=== PATIENT | male | born 1940 | race Caucasian/White ===

== ENCOUNTER 2021-12-28 06:09 | Day surgery (SDC) | payer MEDICARE, OTHER ==
[2021-12-28] MEDS ORDERED: LACTATED RINGERS 1,000 ML IV SCH (06:20)
[2021-12-28 06:31] VITALS: RESP 16; TEMP 97.1
[2021-12-28 06:39] LABS: Glucose,Whole Blood 129 mg/dL (75-99)
[2021-12-28] MEDS ORDERED: PROPOFOL 10 MG/ML 20 ML VIAL IV ONE (06:51)
[2021-12-28] MEDS ORDERED: ONDANSETRON 4 MG/2 ML VIAL ONE (06:59)
--- NOTE | 2021-12-28 07:05 | P.PCN ---
Date of Procedure: 12/28/21 Procedure(s) Performed: BRIEF HISTORY: Patient is a 81-year-old pleasant male scheduled for an elective colonoscopy as a part of evaluation of abnormal CAT scan of the abdomen and pelvis that revealed rectosigmoid stricture. Patient has some change in bowel habits but no rectal bleeding. And scheduled for sigmoidoscopy to evaluate further PROCEDURE PERFORMED: Flexible sigmoid endoscopy with biopsy PREOPERATIVE DIAGNOSIS: Abnormal CAT scan showing rectosigmoid stricture and change in bowel habits. IV sedation per Anesthesia. PROCEDURE: After informed consent was obtained, the patient, was brought into the endoscopy unit. IV sedation was administered by Anesthesia under continuous monitoring. Digital rectal examination was normal. Initially the Olympus CF-160 flexible video colonoscope was then inserted in the rectum, gradually advanced into the splenic flexure without any difficulty. Careful examination was performed as the scope was gradually being withdrawn. In the descending colon there was a 3 mm polyp that was removed by cold biopsy. Rest of the, descending colon, sigmoid colon, and rectum appeared normal. Retroflexion was performed in the rectum and monitor hemorrhoids were seen. The patient tolerated the procedure well. IMPRESSION: 3 mm descending colon polyp status post cold biopsy Small internal hemorrhoids . RECOMMENDATIONS: Findings of this examination were discussed with the patient as well as his family. He was advised to follow with the biopsy results and have a repeat colonoscopy in 5 years..
[2021-12-28 07:20] VITALS: BP 128/74; PULSE 61
== END 2021-12-28 08:05 | disposition home or self-care (01) ==
LOC: ORWHC2ENDO 06:09
PROVIDERS: ATTEND Internal Medicine Gastroenterology
DX: D12.4 Benign neoplasm of descending colon (principal); K64.8 Other hemorrhoids; I10 Essential (primary) hypertension; E11.9 Type 2 diabetes mellitus without complications
CPT/HCPCS: 45331; 88305; J2704

== ENCOUNTER → 2023-03-19 | Outpatient (CLI) | payer MEDICARE, OTHER ==
[2023-03-19 15:22] LABS: Basophils # (A) 0.05 X 10*3/uL (0.00-0.10); Eosinophils # (A) 0.21 X 10*3/uL (0.04-0.35); Eosinophils % (A) 4.3 %; HCT 43.7 % (39.6-50.0); Immature Grans, Automated 0 %; Lymphocytes % (A) 35.1 %; MCH 30.7 pg (27.0-32.0); MCV 95.8 fL (80.0-97.0); Monocytes % (A) 8.2 %; NRBC Per 100 WBC 0 /100 WBCS (0.0-0.0); Neutrophils # (A) 2.49 X 10*3/uL (1.80-7.70); Neutrophils % (A) 51.4 %; Platelet Count 256 X 10*3/uL (140-440); RBC 4.56 X 10*6/uL (4.40-5.60); RDW 13.1 % (11.5-14.5); WBC 4.85 X 10*3/uL (4.50-10.00)
[2023-03-19 16:14] LABS: ALT 22 U/L (10-49); AST 22 U/L (14-35); African American GFR (CKD) 65.8 (60.0-200.0); Albumin 4.6 g/dL (3.8-4.9); Albumin/Globulin Ratio 1.92 (1.60-3.17); Alkaline Phosphatase 63 U/L (41-126); BUN/Creat Ratio 13.67 Ratio (12.00-20.00); Blood Urea Nitrogen 16.4 mg/dL (9.0-27.0); Calcium 9.5 mg/dL (8.7-10.3); Carbon Dioxide 23.4 mmol/L (20.0-27.5); Chloride 104 mmol/L (96-109); Chol/HDL Ratio 3.43 Ratio; Globulin 2.4 g/dL (1.6-3.3); Glucose 126 mg/dL (70-110); LDL Cholesterol,Calculated 90.6 mg/dL (0.0-131.0); Non-African American GFR(CKD) 56.8 (60.0-200.0); Phosphorus 2.7 mg/dL (2.4-5.1); Potassium 4.6 mmol/L (3.5-5.5); Sodium 141 mmol/L (135-145)
== END | disposition home or self-care (01) ==
LOC: LABWHC1 08:22
PROVIDERS: ATTEND Family Medicine
DX: Z00.00 Encounter for general adult medical examination without abnormal findings (principal); E55.9 Vitamin D deficiency, unspecified; N18.30 Chronic kidney disease, stage 3 unspecified; E53.8 Deficiency of other specified B group vitamins; N40.0 Benign prostatic hyperplasia without lower urinary tract symptoms; R97.8 Other abnormal tumor markers; R73.03 Prediabetes; R73.9 Hyperglycemia, unspecified
CPT/HCPCS: 36415; 80053; 80061; 82306; 82607; 83036; 83970; 84100; 84153; 84443; 85025; 86301

== ENCOUNTER 2023-07-30 05:50 | Day surgery (SDC) | payer MEDICARE, OTHER ==
[2023-07-23 11:18] VITALS: BMI 22.1
[2023-07-30 06:43] VITALS: TEMP 98.1
[2023-07-30] MEDS: LACTATED RINGERS 1,000 ML IV SCH ×2 (06:45→06:59)
[2023-07-30] MEDS ORDERED: PROPOFOL 10 MG/ML 20 ML VIAL IV ONE (07:00)
[2023-07-30] MEDS ORDERED: LIDOCAINE 2% INJ 20 MG/ML (2 ML VIAL) ONE (07:00)
[2023-07-30] MEDS ORDERED: IV FLUID CONTINUATION 800 ML IV ONE (07:18)
--- NOTE | 2023-07-30 07:19 | P.PCN ---
Date of Procedure: 07/30/23 Procedure(s) Performed: BRIEF HISTORY: Patient is a 82-year-old, pleasant, male scheduled for an upper endoscopy as part of evaluation of persistent epigastric fullness, epigastric discomfort and heartburn. His been on Nexium 20 mg twice daily despite which remains symptomatic and hence scheduled for an upper endoscopy to evaluate further. PROCEDURE PERFORMED: Esophagogastroduodenoscopy with biopsy. PREOPERATIVE DIAGNOSIS: Epigastric pain, epigastric fullness and GERD. IV sedation per anesthesia. PROCEDURE: After informed consent was obtained, the patient was brought into the endoscopy unit. IV sedation was administered by Anesthesia under continuous monitoring. Initially the Olympus GIF-140 video endoscope was inserted into the mouth. Esophagus intubated without any difficulty. It was gradually advanced into the stomach and duodenum and carefully examined. The bulb and the second part of the duodenum appeared normal. The scope at this time was withdrawn to the stomach, adequately insufflated with air, and upon careful examination, mucosa of the antrum, patchy areas of erythema consistent with gastritis and biopsies were done from this area. Mucosa of the body, cardia and the fundus appeared normal. The scope was then withdrawn into the esophagus. Small sliding type hiatal hernia noted. The GE junction was located at 40 cm from the incisors. The esophagus appeared normal. There were no erosions or ulcerations seen , biopsies were done from the distal esophagus and the patient tolerated the procedure well. IMPRESSION: 1. Minimal antral gastritis. 2. Small hiatal hernia but no evidence of esophagitis or Dacosta's esophagus. RECOMMENDATIONS: The findings of this examination were discussed with the patient as well as his family. He was advised to follow with the biopsy results. Continue with Nexium 20 mg twice a year and follow antireflux measures..
[2023-07-30 07:28] LABS: Glucose,Whole Blood 102 mg/dL (70-110)
[2023-07-30 08:00] VITALS: BP 158/70; PULSE 68; RESP 18
== END 2023-07-30 08:38 | disposition home or self-care (01) ==
LOC: ORWHC2ENDO 05:50
PROVIDERS: ATTEND Internal Medicine Gastroenterology
DX: K29.50 Unspecified chronic gastritis without bleeding (principal); K44.9 Diaphragmatic hernia without obstruction or gangrene; K31.89 Other diseases of stomach and duodenum; I10 Essential (primary) hypertension; E78.5 Hyperlipidemia, unspecified; E11.9 Type 2 diabetes mellitus without complications; K21.9 Gastro-esophageal reflux disease without esophagitis; Z79.82 Long term (current) use of aspirin; Z79.84 Long term (current) use of oral hypoglycemic drugs; Z79.83 Long term (current) use of bisphosphonates; Z79.52 Long term (current) use of systemic steroids; Z79.811 Long term (current) use of aromatase inhibitors; Z79.899 Other long term (current) drug therapy; Z98.890 Other specified postprocedural states
CPT/HCPCS: 88305; 43239; J2704; J2001